=== PATIENT | female | born 1965 | race Caucasian/White ===

== ENCOUNTER 2019-08-11 23:08 | Emergency (ER) | payer OTHER, MEDICAID, SELFPAY ==
[2019-08-11 23:09] VITALS: BP 151/87; PULSE 98; RESP 14; TEMP 36.6; O2SAT 99; BMI 24.0
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
== END 2019-08-11 23:50 | disposition home or self-care (01) ==
LOC: ED 08-12 00:01
PROVIDERS: Emergency Provider Emergency Medicine; Family Provider Internal Medicine; PCP Internal Medicine
DX: M54.42 Lumbago with sciatica, left side (principal)
CPT/HCPCS: 99282

== ENCOUNTER 2025-08-13 18:35 | Emergency (ER) | payer MEDICARE, SELFPAY ==
[2025-08-13 18:35] VITALS: BP 165/72; PULSE 89; RESP 16; TEMP 36.6; O2SAT 98; BMI 27.2
--- NOTE | 2025-08-13 18:47 | RAD_ITS ---
PROCEDURE: CHEST 1 VIEW (PORTABLE) 08/13/2025 REASON FOR EXAM: CHEST PAIN TECHNIQUE: Frontal view of the chest. COMPARISON: None FINDINGS: Hardware: Monitoring electrodes overlying chest wall. Heart: Heart size is mildly enlarged. Lungs: Bibasilar atelectasis Bones: Age-related degenerative changes RAD/Chest 1 View (Portable) IMPRESSION: No acute cardiopulmonary abnormalities. Reading Location: [id number]
[2025-08-13 19:08] LABS: Hematocrit 43.4 % (37-47); Hemoglobin 14.5 g/dL (12.0-15.0); Immature Granulocytes Count 0.050 X10^3/uL (0.0-0.0); Mean Corp Hgb Conc 33.4 g/dL (32-36); Mean Corpuscular Volume 88.9 fL (81-99); NRBC Flagged by Analyzer 0 % (0-5); POSITIVE COUNT YES; RBC Distribution Width CV 13.0 % (11.6-14.6); RBC Distribution Width SD 42.3 fl (35.1-43.9); Red Blood Count 4.88 M/mm3 (4.2-5.4); White Blood Count 12.4 K/mm3 (4.4-11.0)
[2025-08-13 19:36] LABS: Differential Indicated SCAN CRITERIA MET
[2025-08-13] MEDS: Lidocaine 2% Viscous15 ML UDC 15 ML PO (19:39)
[2025-08-13 19:41] VITALS: BP 116/79; PULSE 92; RESP 16; O2SAT 95
[2025-08-13 20:06] VITALS: BP 142/78; PULSE 85; RESP 12; O2SAT 96
[2025-08-13 20:09] LABS: Differential Comment SCANNED
[2025-08-13 20:11] LABS: Anion Gap 12 (5-15); BUN 15 mg/dL (4-19); BUN/Creat Ratio 18.1 RATIO (10-20); Calcium,Total 9.2 mg/dL (7.6-11.0); Carbon Dioxide 23.6 mmol/L (21.0-32.0); Chloride 105 mmol/L (98-108); Estimated Creatinine Clearance 81.94 ml/min (50-250); Glucose 106 mg/dL (70-99); Potassium 3.9 mmol/L (3.3-5.1); Troponin T High Sensitivity < 6 ng/L (<=14)
--- NOTE | 2025-08-13 20:36 | EDS_ITS ---
HPI History of Present Illness Chief Complaint: Chest Pain Detail of Chief Complaint: Chest pain per patient. She localized pain to the epigastric area. Informant: patient Onset/Context/Timing Onset: Today and Hours Activity at onset: sudden and rest Timing: Continuous Quality: Positive for Burning and Indigestion Location: - (Points to the epigastric area.) Current Severity: Moderate Maximum Severity: Severe Relieved By: Nothing Associated Symptoms: Positive for Acid Reflux; Negative for Nausea, Vomiting, Diaphoresis, Dyspnea, Cough, Fever, Lightheadedness or Palpitations Narrative Narrative: Patient is a 59-year-old woman. This is her third episode of discomfort. She was recently admitted to [place] by the [facility] She had a stress test which was negative. She was placed on omeprazole. She denies fever, chills night sweats. She denies dyspnea, dyspnea exertion, orthopnea or PND. Patient denies food intolerance. Patient denies black or maroon-colored stool. Patient denies trauma. Patient denies pain rating through to her back. Patient denies history of VTE. She denies leg pain, swelling discoloration. She states she was just placed on omeprazole. She does was increased. Prior Similar Symptoms: Yes and - (Diagnosed with presumed GERD. She has not had an EGD performed) Recent Illness/Hospitalization: Yes CVD Risk Factors: Negative for Hypertension, Diabetes, Hypercholesterolemia, Family History 1' </=55 or Smoking PE Risk Factors: Negative for Recent Travel/Surgery, Recent Immobilization, Prior DVT or PE, Cancer or OCP + Smoking + >/=35 TAD Risk Factors: Negative for Marfan's Syndrome, Hypertension or Family History [facility] Medical History (Updated 08/13/25 @ 20:[address] David Moran MD) GERD (gastroesophageal reflux disease) Home Medications ?Medication ?Instructions ?Recorded ?Last Taken ?Type cyclobenzaprine 10 mg tablet 10 mg PO TID PRN Muscle S pasm #20 08/11/19 Unknown Rx tabs ibuprofen 800 mg tablet 800 mg PO PRN PRN Pain Score 08/11/19 Unknown History 1-08/14 diazepam 5 mg tablet mg 08/13/25 Unknown History omeprazole 20 mg capsule,delayed 20 mg PO DAILY Unknown History release Allergy/AdvReac Type Severity Reaction Status Date / Time No Known Allergies Allergy Verified 08/13/25 18:37 Surgical History H/O uterine ablation H/O tubal ligation H/O rotator cuff surgery Social History Smoking Status: Former smoker ROS ROS ED Constitutional Constitutional ED: Denies chills, fever(s) or subjective Eyes Eyes: Reports none ENT ENT ED: Denies rhinorrhea or sore throat Cardiovascular Cardiovascular: Reports as per HPI; Denies orthopnea or paroxysmal nocturnal dyspnea Respiratory/Chest Respiratory/Chest: Denies cough, dyspnea, dyspnea on exertion, orthopnea or paroxysmal nocturnal dyspnea Gastrointestinal Gastrointestinal: Reports abdominal pain; Denies constipation, diarrhea, melena, nausea or vomiting Genitourinary Genitourinary ED: Denies dysuria, hematuria or urinary frequency Musculoskeletal Musculoskeletal: Denies arthralgias, back pain or myalgias Integumentary Denies rash Endocrine Endocrinology: Denies cold intolerance or heat intolerance Hematologic/Lymphatic Hematologic/Lymphatic: Denies easy bleeding or easy bruising EXAM Physical Exam Const Vital Signs: 08/13/25 18:35 08/13/25 18:47 08/13/25 18:55 Temperature 98 F Temperature Source Oral Pulse Rate 89 Respiratory Rate 16 Respiratory Effort Normal Blood Pressure 165/72 H Blood Pressure Mean 103 Pulse Ox 98 Oxygen Delivery Method Room Air Room Air 08/13/25 19:41 08/13/25 20:06 Temperature Temperature Source Pulse Rate 92 85 Respiratory Rate 16 12 Respiratory Effort Blood Pressure 116/79 142/78 H Blood Pressure Mean 91 99 Pulse Ox 95 96 Oxygen Delivery Method Room Air Room Air Positive well nourished and well developed General Appearance ED: well developed and NAD; Negative for pallor HEENT Reports moist mucous membranes normocephalic and atraumatic Eyes PERRL and EOMs intact bilaterally General Eye ED: Negative for pale conjunctiva or scleral icterus Neck no lymphadenopathy, supple and no JVD Chest Wall inspection of chest normal and palpation of chest normal Resp normal respiratory effort and clear to auscultation bilaterally Cardio regular rate, regular rhythm, S1 normal heart sound, S2 normal heart sound and no murmurs GI normal to inspection, nondistended, normoactive bowel sounds, soft to palpation, non-distended and no masses; Negative for non-tender or hepatosplenomegaly GI Narrative: Pain is in the epigastric. Patient has negative clinical Mohan sign. There is no Passman megaly. Back/Spine no CVA tenderness and no thoracic nor lumbar tenderness Extremity normal to inspection Extremity Narrative: There is no asymmetry, swelling, discoloration, leg vein distention, palpable cords or tenderness along the distribution of the deep venous system. Neuro oriented x3 and CN's II-XII intact bilaterally Sensorium / Orientation: awake and alert Psych Mood & Affect: anxious Skin no rashes or lesions noted and no wounds General Skin Exam: Negative for jaundice or pallor MDM MDM MDM Narrative Medical decision making narrative: Differential diagnosis is cardiac versus noncardiac noncardiac would include reflux, peptic ulcer disease, biliary disease, there is no concern for pneumonia, pneumothorax or pulmonary embolus. Lab Data Lab results narrative: White count is slightly elevated. There is no shift. Electrolyte panel is unremarkable. Glucose slightly elevated at 106. Troponin is less than 6 with hours of pain. In light of a recent normal stress test the fact that she got better with GI cocktail will discharge to home. Labs: Laboratory Results - last 24 hr 08/13/25 18:54 WBC 12.4 H RBC 4.88 Hgb 14.5 Hct 43.4 MCV 88.9 MCH 29.7 MCHC 33.4 RDW Std Deviation 42.3 RDW Coeff of Janell 13.0 Plt Count TNP MPV TNP Immature Gran % (Auto) 0.400 Neut % (Auto) 53.8 Lymph % (Auto) 34.1 Bond % (Auto) 7.7 Eos % (Auto) 3.4 Baso % (Auto) 0.6 Absolute Neuts (auto) 6.7 Absolute Lymphs (auto) 4.23 Nucleated RBC % 0 Differential Comment SCANNED Platelet Estimate ADEQUATE Sodium 141 Potassium 3.9 Chloride 105 Carbon Dioxide 23.6 Anion Gap 12 BUN 15 Creatinine 0.80 Estim Creat Clear Calc 81.94 Est GFR (MDRD) Non-Af 85 BUN/Creatinine Ratio 18.1 Glucose 106 H Calcium 9.2 Troponin T High Sens < 6 Radiography Chest X-Ray - ED: 1 View, Read by ED Physician, Heart, Lungs (Mild chronic changes. No infiltrate or effusion or evidence of CHF.), Mediastinum, Bony Structures and No Acute Disease Diagnostic Testing: Clinical Impression(s) from Imaging Studies Chest X-Ray 08/13/25 18:47 IMPRESSION: No acute cardiopulmonary abnormalities. 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, pneumonia Reason(s) pneumonia less likely: Positive for no infiltrate on CXR, no elevation in WBC count, no noted fever and symptoms not consistent with acute infection and aortic dissection Reason(s) Aortic dissection less likely:: Positive for normal vascular exam, no history of HTN, normal neurological exam, no significant risk factors for dissection, no widened mediastinum on CXR, pain not sudden onset, no rippi ng/tearing pain, no pain to back and blood pressure appropriate in ED Discharge Plan Triage Chief Complaint: Chest Pain ED Provider: David Moran Dx/Rx/DC Orders Clinical Impression: Acute epigastric pain, Chest pain due to GERD, Elevated blood pressure reading without diagnosis of hypertension Instructions: ED GERD (Adult) Prescriptions: No Action cyclobenzaprine 10 MG tablet 10 mg PO TID PRN (Reason: Muscle Spasm) Qty: 20 0RF ibuprofen 800 MG tablet 800 mg PO PRN PRN (Reason: Pain Score 1-10/10) Patient Comments: Take 1 (ONE) tablet by mouth every EIGHT hours as needed for Pain (with food.). start after prednisone is completed for pain diazepam 5 mg tablet omeprazole 20 mg capsule,delayed release(DR/EC) 20 mg PO DAILY Primary Care Provider: Cindy Streeter Referrals: Cindy Streeter MD [Primary Care Provider, Internal Medicine] - As Needed Print Language: Guamanian Disposition Disposition: Home, Self Care
[2025-08-13 20:52] VITALS: BP 135/81; PULSE 84; RESP 17; TEMP 36.5; O2SAT 100
== END 2025-08-13 21:02 | disposition home or self-care (01) ==
PROVIDERS: Emergency Provider Emergency Medicine; PCP Internal Medicine; Visit Provider Emergency Medicine
DX: R10.13 Epigastric pain (principal); K21.9 Gastro-esophageal reflux disease without esophagitis; R07.9 Chest pain, unspecified; R03.0 Elevated blood-pressure reading, without diagnosis of hypertension; Z79.899 Other long term (current) drug therapy; Z87.891 Personal history of nicotine dependence
CPT/HCPCS: 71045; 80048; 84484; 85025; 93005; 99285; A4216